=== PATIENT | male | born 1990 | race Caucasian/White ===

== ENCOUNTER 2017-09-13 07:31 | Emergency (ER) | payer BC, OTHER ==
[2017-09-13] MEDS ORDERED: Albuterol/Ipratropium 3.0-0.5 MG/3 ML Neb Soln NEB ONE (07:53)
--- NOTE | 2017-09-13 07:57 | EDM.PDOC ---
ED HPI GENERAL MEDICAL PROBLEM - General Chief Complaint: Respiratory Problem Stated Complaint: COUGH Time Seen by Provider: 09/13/17 07:49 - History of Present Illness INITIAL COMMENTS - FREE TEXT/NARRATIVE: HISTORY AND PHYSICAL: History of present illness: The patient is a 27-year-old male who presents with a four-day history of cough productive of phlegm sweats but no documented fevers and body aches. He did not get his influenza shot this year and has not been using any sokw-hpl-sofjppt meds. He has not taken his temperature but has been sweating a lot and he says he's been pushing a lot of fluids. He has diffuse body aches and feels tired of the time. He is not a smoker but he is around secondhand smoke as well as ill contacts. He has been able to eat and drink and has no abdominal pain vomiting or diarrhea. Patient has no chronic pulmonary problems. Review of systems: As per history of present illness and below otherwise all systems reviewed and negative. Past medical history: As per history of present illness and as reviewed below otherwise noncontributory. Surgical history: As per history of present illness and as reviewed below otherwise noncontributory. Social history: No reported history of drug or alcohol abuse. Family history: As per history of present illness and as reviewed below otherwise noncontributory. Physical exam: Gen.: Well-developed mildly overweight male who is nontoxic and vital signs of noted by me. HEENT: Atraumatic, normocephalic, pupils reactive, negative for conjunctival pallor or scleral icterus, mucous membranes moist, throat clear of exudates but there is some erythema, there is no cervical adenopathy or nuchal rigidity, neck supple, nontender, trachea midline. Lungs: Clear to auscultation with some coarse rhonchi at the bases bilaterally but no stridor or wheezing, breath sounds equal bilaterally, chest nontender. Heart: S1S2, regular rate and rhythm no overt murmurs Abdomen: Soft, nondistended, nontender. NABS Pelvis: Deferred Genitourinary: Deferred. Rectal: Deferred. Extremities: Atraumatic, negative for cords or calf pain. Neurovascular unremarkable. Neuro: Awake, alert, oriented. Cranial nerves II through XII unremarkable. Cerebellum unremarkable. Motor and sensory unremarkable throughout. Exam nonfocal. Diagnostics: Chest x-ray influenza swab Therapeutics: DuoNeb' space and spacer teaching Patient states he does feel improved after the nebulizer treatment and I discussed with him testing results and care plan for home including a burst of steroids inhaler with spacer Impression: Bronchitis Definitive disposition and diagnosis as appropriate pending reevaluation and review of above. Rib pain Pain Score (Numeric/FACES): 7 - Related Data Allergies Allergy/AdvReac Type Severity Reaction Status Date / Time No Known Allergies Allergy Verified 09/13/17 07:51 Home Meds: Home Meds . [No Known Home Meds] 09/13/17 [History] ED ROS GENERAL - Review of Systems Review Of Systems: ROS reveals no pertinent complaints other than HPI. ED EXAM, GENERAL - Physical Exam Exam: See Below (See dictation) Course - Vital Signs Last Recorded V/S: Last Vital Signs Temp 36.8 C 09/13/17 07:51 Pulse 98 09/13/17 07:51 Resp 16 09/13/17 07:51 BP 140/87 09/13/17 07:51 Pulse Ox 97 09/13/17 07:51 - Orders/Labs/Meds Orders: Active Orders 24 hr Category Date Time Status RT Aerosol Therapy [RC] ASDIRECTED Care 09/13/17 07:53 Active Chest 2V [CR] Stat Exams 09/13/17 07:53 Taken Meds: Medications Discontinued Medications Generic Name Dose Route Start Last Admin Trade Name Freq PRN Reason Stop Dose Admin Albuterol/Ipratropium 3 ml 09/13/17 07:53 09/13/17 07:59 Duoneb 3.0-0.5 Mg/3 Ml NEB 09/13/17 07:54 3 ml ONETIME ONE Administration Departure - Departure Time of Disposition: 08:37 Disposition: Home, Self-Care 01 Condition: Good Clinical Impression: Acute bronchitis Qualifiers: Bronchitis organism: unspecified organism Qualified Code(s): J20.9 - Acute bronchitis, unspecified - Discharge Information Referrals: Elio Maravilla MD [Primary Care Provider] - Forms: ED Department Discharge Additional Instructions: The following information is given to patients seen in the emergency department who are being discharged to home. This information is to outline your options for follow-up care. We provide all patients seen in our emergency department with a follow-up referral. The need for follow-up, as well as the timing and circumstances, are variable depending upon the specifics of your emergency department visit. If you don't have a primary care physician on staff, we will provide you with a referral. We always advise you to contact your personal physician following an emergency department visit to inform them of the circumstance of the visit and for follow-up with them and/or the need for any referrals to a consulting specialist. The emergency department will also refer you to a specialist when appropriate. This referral assures that you have the opportunity for followup care with a specialist. All of these measure are taken in an effort to provide you with optimal care, which includes your followup. Under all circumstances we always encourage you to contact your private physician who remains a resource for coordinating your care. When calling for followup care, please make the office aware that this follow-up is from your recent emergency room visit. If for any reason you are refused follow-up, please contact the [facility] emergency department at and ask to speak to the emergency department charge nurse. [facility] Primary care- Internal Medicine [place] [address] Please call and follow-up with your provider or one of the other providers in our clinic in the next few days for reevaluation and further care. Rest and push hydration. Use ontc-mdu-tjudmci Tylenol or ibuprofen for fevers and body aches. Use inhaler with spacer you have been given every 6 hours for the next 2 days and then every 6 hours as needed. These use cough medicine only at nighttime or when you're at home. Please take the Medrol pack of steroids as directed. Return to ER as needed and as discussed in please call and schedule a follow-up appointment with one of our clinic providers in the next few days for reevaluation and further care. - My Orders Last 24 Hours: My Active Orders 09/13/17 07:53 RT Aerosol Therapy [RC] ASDIRECTED Chest 2V [CR] Stat - Assessment/Plan Last 24 Hours: My Active Orders 09/13/17 07:53 RT Aerosol Therapy [RC] ASDIRECTED Chest 2V [CR] Stat
--- NOTE | 2017-09-14 06:56 | CR ---
EXAM DATE: 09/13/17 PATIENT'S AGE: 27 Patient: ADRIA OCHOA Facility: [place], [place] Site . Site : 1990 Study: XRay Chest [id number]/4/2018 8:22:17 AM Ordering Physician: Doctor Quintero Final Report: INDICATION: pain/sob TECHNIQUE: PA and lateral chest films are submitted. COMPARISON: None. FINDINGS: Heart size and pulmonary vasculature within normal limits. Lung sánchez are clear. IMPRESSION: No active disease. Dictated by Elio Lo MD @ 09/13/2017 8:24:24 AM Dictated by: Elio Lo MD @ 09/13/2017 08:24:31 (Electronic Signature) Report Signed by Proxy. [facility] HOSPITALJose
== END 2017-09-13 08:54 | disposition home or self-care (01) ==
LOC: MW.ED 07:31
DX: J20.9 Acute bronchitis, unspecified (principal); Z77.22 Contact with and (suspected) exposure to environmental tobacco smoke (acute) (chronic)
CPT/HCPCS: 71046; 71046-26; 87804; 94640; 99283; 99284-25

== ENCOUNTER 2020-01-12 09:42 | Emergency (ER) | payer BC, OTHER ==
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
--- NOTE | 2020-01-12 10:30 | CR ---
Chest and left ribs: Frontal view of the chest was obtained as well as 4 views left ribs. Comparison: Previous chest x-ray of 09/13/17. Heart size and mediastinum are normal. Mild atelectasis is seen within the left lung base. Lungs otherwise are clear. No discrete fracture or other left-sided rib abnormality is appreciated. Impression: 1. Mild left basilar atelectasis. 2. Nothing acute is otherwise seen on frontal chest x-ray. 3. No discrete left-sided rib abnormality is appreciated. Diagnostic code #3 This report was dictated in MDT
[2020-01-12] MEDS ORDERED: Iopamidol 755 MG/ML 500 ML Multipack Bottle IVPUSH STA (10:32)
[2020-01-12 10:37] LABS: BLOOD UREA NITROGEN,BUN 10 mg/dL (7.0-18.0); CARBON DIOXIDE,CO2 24.7 mmol/L (21.0-32.0); CHLORIDE,CL 99 mmol/L (98-107); GLUCOSE RANDOM 137 mg/dL (74-106); LIPASE 60 U/L (73-393); POTASSIUM,K 3.6 mmol/L (3.5-5.1); SODIUM,NA 138 mmol/L (136-148)
[2020-01-12] MEDS ORDERED: Azithromycin 250 MG Tab PO ONE (10:47)
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
[2020-01-12] MEDS ORDERED: Acetaminophen/Codeine 300-30 MG Tab PO ONE (10:50)
[2020-01-12] MEDS ORDERED: Sodium Chloride 0.9% 1,000 ML IV ONE (11:02)
== END 2020-01-12 13:02 ==
LOC: MW.ED 09:42
DX: S36.039A Unspecified laceration of spleen, initial encounter (principal); S20.312A Abrasion of left front wall of thorax, initial encounter; R58 Hemorrhage, not elsewhere classified; Z20.828 Contact with and (suspected) exposure to other viral communicable diseases; V29.9XXA Motorcycle rider (driver) (passenger) injured in unspecified traffic accident, initial encounter; Y92.828 Other wilderness area as the place of occurrence of the external cause
CPT/HCPCS: 36415; 71101; 74177; 80053; 82550; 83690; 84484; 85025; 85610; 86850; 86900; 86901; 87635; 93005; 96360; 96361; 99291; J7030; Q9967; U0002

== ENCOUNTER 2020-01-19 10:17 | Emergency (ER) | payer BC ==
[2020-01-19] MEDS ORDERED: Morphine 4 MG/ML Syringe IVPUSH ONE (10:45)
[2020-01-19] MEDS ORDERED: Ondansetron 4 MG/2 ML SDV IVPUSH ONE (10:45)
[2020-01-19] MEDS ORDERED: Sodium Chloride 0.9% 1,000 ML IV ONE (10:45)
--- NOTE | 2020-01-19 10:50 | EDM.PDOC ---
<Amor Renee - Last Filed: 01/19/20 11:51> ED HPI GENERAL MEDICAL PROBLEM - General Chief Complaint: Respiratory Problem Time Seen by Provider: 01/19/20 10:21 Source of Information: Reports: Patient History Limitations: Reports: No Limitations - History of Present Illness INITIAL COMMENTS - FREE TEXT/NARRATIVE: 29 y.o male With a significant past medical history of a recent abdominal trauma with a grade 3 splenic laceration; recently discharged on Thursday from [place], [place] after serial hemoglobins were stable requiring no surgical intervention. Since discharge patient has been at home and asymptomatic up until Thursday. Patient on Thursday appreciated increasing dyspnea even at rest and increasing left-sided chest pain. States the pain is more superficial and feeling in his ribs and is exquisitely tender in that area as well. Denies any fever, chills, body aches, lower extremity swelling or tenderness. Denies any constipation, diarrhea. Denies any [id number] medications since discharge. Presented this morning to outpatient clinic with above-stated chief complaints; labs and x-ray were ordered. Bedside: mentions increasing pain and dyspnea while laying flat. breathing Pain Score (Numeric/FACES): 5 - Related Data Allergies Allergy/AdvReac Type Severity Reaction Status Date / Time No Known Allergies Allergy Verified 01/19/20 10:32 Home Meds: Home Meds Lansoprazole [Prevacid] 1 cap PO DAILY 01/12/20 [History] Past Medical History - Past Health History Medical/Surgical History: Denies Medical/Surgical History Gastrointestinal History: Reports: GERD - Past Surgical History Other GI Surgeries/Procedures: grade 3 Spleen Laceration 01/12/20 Other Musculoskeletal Surgeries/Procedures:: hx- broken ribs Social & Family History - Family History Family Medical History: Noncontributory - Tobacco Use Smoking Status *Q: Light Tobacco Smoker Years of Tobacco use: 10 Packs/Tins Daily: 0 - Caffeine Use Caffeine Use: Reports: Coffee - Recreational Drug Use Recreational Drug Use: No ED ROS GENERAL - Review of Systems Review Of Systems: See Below Constitutional: Denies: Fever, Chills HEENT: Reports: No Symptoms Respiratory: Reports: Shortness of Breath, Pleuritic Chest Pain. Denies: Wheezing, Cough, Sputum, Hemoptysis Cardiovascular: Reports: Chest Pain, Dyspnea on Exertion GI/Abdominal: Denies: Abdominal Pain, Constipation, Diarrhea : Reports: No Symptoms Musculoskeletal: Reports: No Symptoms Skin: Reports: No Symptoms Neurological: Denies: Confusion, Dizziness, Headache Psychiatric: Denies: No Symptoms ED EXAM, GENERAL - Physical Exam Exam: See Below Exam Limited By: No Limitations General Appearance: Alert, Mild Distress Ears: Normal External Exam, Normal TMs Nose: Normal Mucosa Throat/Mouth: Normal Oropharynx, No Airway Compromise Head: Atraumatic, Normocephalic Neck: Supple, Non-Tender, Full Range of Motion Respiratory/Chest: Other (shallow breating, mildly tachypneic, decreaed BS in bases b/l; moving air in upper lung sánchez. ) Cardiovascular: Other (regualr rhythm; tachycardic ; no lower extrmeity swellingm, tenderness, negative homans sign) GI/Abdominal: Soft, Non-Tender Back Exam: Normal Inspection, Full Range of Motion Neurological: Alert, Oriented, Normal Cognition Skin Exam: Warm, Dry EKG INTERPRETATION EKG Date: 01/19/20 Rate (Beats/Min): 103 EKG Interpretation Comments: Sinus tachycardia no st elevation/depression Departure - Departure Disposition: DC/Tfer to [facility] 02 Clinical Impression: Left-sided chest pain, Atelectasis of left lung - Discharge Information Instructions: Shortness of Breath, Adult, [id number] Referrals: Myriam De La Rosa PA [Primary Care Provider] - Forms: ED Department Discharge Sepsis Event Note (ED) - Evaluation Sepsis Screening Result: No Definite Risk <Kar Nuñez - Last Filed: 01/19/20 13:15> ED HPI GENERAL MEDICAL PROBLEM - History of Present Illness INITIAL COMMENTS - FREE TEXT/NARRATIVE: History of present illness: [] Review of systems: As per history of present illness and below otherwise all systems reviewed and negative. Past medical history: As per history of present illness and as reviewed below otherwise n oncontributory. Surgical history: As per history of present illness and as reviewed below otherwise noncontributory. Social history: No reported history of drug or alcohol abuse. Family history: As per history of present illness and as reviewed below otherwise noncontributory. Physical exam: HEENT: Atraumatic, normocephalic, pupils reactive, negative for conjunctival pallor or scleral icterus, mucous membranes moist, throat clear, neck supple, nontender, trachea midline. Lungs: Clear to auscultation, breath sounds equal bilaterally, chest tender over the left lateral mid thorax. Heart: S1S2, regular, negative for clicks, rubs, or JVD. Tachycardic 115 Abdomen: Soft, nondistended, nontender. Negative for masses or hepatosplenomegaly. Negative for costovertebral tenderness. Pelvis: Stable nontender. Genitourinary: Deferred. Rectal: Deferred. Extremities: Atraumatic, negative for cords or calf pain. Neurovascular unremarkable. Neuro: Awake, alert, oriented. Cranial nerves II through XII unremarkable. Cerebellum unremarkable. Motor and sensory unremarkable throughout. Exam nonfocal. Diagnostics: [] Therapeutics: [] Impression: [] Plan: [] Definitive disposition and diagnosis as appropriate pending reevaluation and review of above. ED ROS GENERAL - Review of Systems Review Of Systems: See Below ED EXAM, GENERAL - Physical Exam Exam: See Below Course - Vital Signs Text/Narrative:: CT angiogram of the chest was read by radiology as no PE no pneumothorax there is consolidation and atelectasis in the left base of the left lung and there is a sub capsular hematoma on the spleen. At 12:45 PM I reviewed the case with Dr. Winter he thinks the patient should be transferred to [place] for pulmonology care possible bronchoscopy 1245 the patient was reexamined and is still in severe pain he is unable to lie flat his blood pressure stable sats are in the 97 percentile heart tachycardic at 120s. More pain medicine is ordered. 1 PM I discussed the case with the ED attending at [place] and the trauma service Dr Tapia they will accept the patient in transfer to the ED will probably be admitted to the medicine service. Last Recorded V/S: Last Vital Signs Temp 36.3 C 01/19/20 10:29 Pulse 105 H 01/19/20 12:30 Resp 17 01/19/20 12:30 BP 120/84 01/19/20 12:30 Pulse Ox 97 01/19/20 12:30 - Orders/Labs/Meds Orders: Active Orders 24 hr Category Date Time Status EKG Documentation Completion [RC] STAT Care 01/19/20 10:43 Active B-TYPE NATRIURETIC PEPTIDE,BNP [CHEM] Stat Lab 01/19/20 10:44 Received TROPONIN I [CHEM] Stat Lab 01/19/20 10:44 Received Morphine Med 01/19/20 12:40 Active 4 mg IVPUSH Q2H PRN Medication Orders Morphine Sulfate (Morphine) 4 mg IVPUSH Q2H PRN PRN Reason: Pain (moderate 4-6) Last Admin: 01/19/20 12:43 Dose: 4 mg Documented by: HERMILO Meds: Medications Generic Name Dose Route Start Last Admin Trade Name Freq PRN Reason Stop Dose Admin Morphine Sulfate 4 mg 01/19/20 12:40 01/19/20 12:43 Morphine IVPUSH 4 mg Q2H PRN Administration Pain (moderate 4-6) Discontinued Medications Generic Name Dose Route Start Last Admin Trade Name Freq PRN Reason Stop Dose Admin Sodium Chloride 1,000 mls @ 999 mls/hr 01/19/20 10:45 01/19/20 10:50 Normal Saline IV 01/19/20 11:45 999 mls/hr STAT ONE Administration Iopamidol 50 ml 01/19/20 12:10 01/19/20 12:11 Isovue Multipack-370 (76%) IVPUSH 01/19/20 12:11 50 ml ONETIME STA Administration Lorazepam 1 mg 01/19/20 12:27 01/19/20 12:37 Ativan IVPUSH 01/19/20 12:28 1 mg ONETIME ONE Administration Morphine Sulfate 4 mg 01/19/20 10:45 01/19/20 10:50 Morphine IVPUSH 01/19/20 10:46 4 mg ONETIME ONE Administration Ondansetron HCl 4 mg 01/19/20 10:45 01/19/20 10:50 Zofran IVPUSH 01/19/20 10:46 4 mg ONETIME ONE Administration Departure - Departure Time of Disposition: 13:14 Condition: Good - Discharge Information *PRESCRIPTION DRUG MONITORING PROGRAM REVIEWED*: Not Applicable *COPY OF PRESCRIPTION DRUG MONITORING REPORT IN PATIENT YOAV: Not Applicable Sepsis Event Note (ED) - Focused Exam Vital Signs: Vital Signs Temp Pulse Resp BP Pulse Ox 01/19/20 12:30 105 H 17 120/84 97 01/19/20 10:29 36.3 C 113 H 16 128/81 94 L - My Orders Last 24 Hours: My Active Orders 01/19/20 10:44 B-TYPE NATRIURETIC PEPTIDE,BNP [CHEM] Stat TROPONIN I [CHEM] Stat 01/19/20 12:40 Morphine 4 mg IVPUSH Q2H PRN - Assessment/Plan Last 24 Hours: My Active Orders 01/19/20 10:44 B-TYPE NATRIURETIC PEPTIDE,BNP [CHEM] Stat TROPONIN I [CHEM] Stat 01/19/20 12:40 Morphine 4 mg IVPUSH Q2H PRN
--- NOTE | 2020-01-19 12:04 | CT ---
CT chest Technique: Multiple axial sections through the chest were obtained. Intravenous contrast was utilized. Study performed as a pulmonary angiogram protocol. Comparison: Previous chest x-ray performed earlier on the same day (9:44 AM). Findings: Pulmonary arteries are moderately well opacified. No discrete filling defects are seen to indicate pulmonary embolism. Aorta shows no aneurysm. Small mediastinal lymph nodes are seen believed to be within normal limits. Axillary lymph nodes are seen also felt to be within normal limits. Small left-sided pleural effusion is seen. Areas of consolidation are seen within both lung bases, worse on the left side. Upper lungs appear to be clear. Diffuse fatty infiltration is seen within the liver. There is fluid being seen next to the spleen which may represent subcapsular fluid with Hounsfield unit measurements of could represent blood. Thickness of the subcapsular fluid collection is around 3.2 cm in greatest dimension. No discrete osseous abnormality is seen on bone window settings. Impression: 1. Subcapsular fluid around the spleen. Hounsfield unit measurements could represent blood. Please correlate if patient has had previous trauma as an etiology for a subcapsular hematoma. If no history of trauma this most likely is due to spontaneous hemorrhage then correlate with patient's coagulopathy status. Thickness of the subcapsular collection is up to 3.2 cm. 2. Fatty infiltration within the liver. 3. Small left-sided pleural effusion. 4. Consolidation within both lower lungs, worse on the left side. Difficult to exclude pneumonia although prominent atelectasis is also possible. 5. No definite findings of pulmonary embolism are seen. Diagnostic code #5 This report was dictated in MDT
[2020-01-19] MEDS ORDERED: Iopamidol 755 MG/ML 500 ML Multipack Bottle IVPUSH STA (12:10)
[2020-01-19] MEDS ORDERED: LORazepam 2 MG/ML SDV IVPUSH ONE (12:27)
[2020-01-19] MEDS: Morphine 4 MG/ML Syringe IVPUSH PRN ×2 (12:43→13:53)
[2020-01-19] MEDS ORDERED: fentaNYL 50 MCG/ML SDV IVPUSH ONE (14:57)
== END 2020-01-19 15:57 ==
LOC: MW.ED 10:17
DX: J98.11 Atelectasis (principal); K21.9 Gastro-esophageal reflux disease without esophagitis; F17.210 Nicotine dependence, cigarettes, uncomplicated; Z79.899 Other long term (current) drug therapy
CPT/HCPCS: 36415; 71275; 83880; 84484; 93005; 96374; 96375; 96376; 99285; J2060; J2270; J2405; J3010; J7030; Q9967